=== PATIENT | male | born 1980 | race Caucasian/White ===

== ENCOUNTER 2019-04-26 19:37 | Emergency (ER) | payer OTHER ==
[~2019-04-26] VITALS: Ht 175.3 cm; Wt 68.0 kg
[~2019-04-26 19:37] MED LIST: MUCINEX600 MG; PREDNISONE 20 M20 MG PO; SUDAFED30 MG; ZPAK PO
[2019-04-26 19:43] VITALS: BP 126/68
[2019-04-26] MEDS ORDERED: BACTRIM DS TAB1 EACH PO (19:58)
[2019-04-26] MEDS ORDERED: KEFLEX500 M1 PO (19:58)
[2019-04-26] MEDS ORDERED: NAPROSYN500 MG PO (20:15)
== END 2019-04-26 20:18 | disposition home or self-care (01) ==
LOC: M.ERS 19:37
DX: S81.032A Puncture wound without foreign body, left knee, initial encounter (principal); S80.262A Insect bite (nonvenomous), left knee, initial encounter; Z91.030 Bee allergy status; W57.XXXA Bitten or stung by nonvenomous insect and other nonvenomous arthropods, initial encounter; Y92.89 Other specified places as the place of occurrence of the external cause; Y93.89 Activity, other specified; Y99.8 Other external cause status